=== PATIENT | female | born 1980 | race Caucasian/White ===

== ENCOUNTER 2023-02-03 05:40 | Inpatient (IN) | payer OTHER ==
[2023-02-07] MEDS ORDERED: Acetaminophen 500 MG Tab PO ONE (05:39)
[2023-02-07] MEDS ORDERED: Scopolamine 1.5 MG Transdermal Patch TOP ONE (05:39)
[2023-02-07] MEDS ORDERED: Dextrose 5%-Lactated Ringers 1,000 ML IV SCH ×2 (05:45→11:00)
[2023-02-07 06:13] LABS: HEMATOCRIT 38.7 % (34.3-46.0); HEMOGLOBIN 13.1 g/dL (11.2-15.5); MEAN CORPUSCULAR HEMOGLOBIN 29.4 pg (31.6-35.5); MEAN CORPUSCULAR HGB CONC 33.9 g/dL (31.6-35.5); MEAN CORPUSCULAR VOLUME 86.8 fL (81.4-99.0); RED BLOOD CELL COUNT 4.46 M/uL (3.77-5.24); WHITE BLOOD CELL COUNT,WBC 9.3 K/uL (3.2-11.0)
[2023-02-07 06:27] LABS: HEMOGLOBIN A1C 7.3 % (4.5-6.2)
[2023-02-07] MEDS ORDERED: Celecoxib 200 MG Cap PO ONE ×2 (06:30→07:00)
[2023-02-07 06:35] LABS: A/G RATIO 0.8 (1.2-2.2); ALANINE AMINOTRANSFERASE,ALT 46 U/L (12-78); ALBUMIN 3.3 g/dL (3.4-5.0); ALKALINE PHOSPHATASE 96 U/L (46-116); ASPARTATE AMNIOTRANSFERASE,AST 37 U/L (15-37); BILIRUBIN TOTAL 0.4 mg/dL (0.2-1.0); BLOOD UREA NITROGEN,BUN 12 mg/dL (7-18); CALCIUM 8.7 mg/dL (8.5-10.1); CARBON DIOXIDE,CO2 27 mmol/L (21-32); CHLORIDE,CL 100 mmol/L (100-108); CREATININE 0.7 mg/dL (0.6-1.0); EST CRCL DRUG DOSING (CG) 94.21 mL/min; ESTIMATED GFR 111 mL/min (>60); GLUCOSE RANDOM 204 mg/dL (74-106); MAGNESIUM 1.6 mg/dL (1.8-2.4); PHOSPHORUS 4.2 mg/dL (2.5-4.9); POTASSIUM,K 3.8 mmol/L (3.6-5.2); PROTEIN TOTAL,TP 7.7 g/dL (6.4-8.2); SODIUM,NA 136 mmol/L (140-148)
[2023-02-07] MEDS ORDERED: Meropenem 500 MG SDV ONE (06:36)
[2023-02-07] MEDS ORDERED: Bupivacaine 0.5% 50 ML MDV ONE (06:36)
[2023-02-07] MEDS ORDERED: Lidocaine 1% with EPINEPHrine 1:100,000 50 ML MDV ONE (06:36)
[2023-02-07 06:37] LABS: ANION GAP 12.8 mmol/L (5.0-14.0)
[2023-02-07] MEDS ORDERED: Dexamethasone 4 MG/ML SDV ONE (06:51)
[2023-02-07] MEDS ORDERED: Glycopyrrolate 0.2 MG/ML 5 ML MDV ONE (06:51)
[2023-02-07] MEDS ORDERED: Rocuronium 50 MG/5 ML Vial ONE (06:51)
[2023-02-07] MEDS ORDERED: Succinylcholine 200 MG/10 ML MDV ONE (06:51)
[2023-02-07] MEDS ORDERED: Neostigmine Methylsulfate 1 MG/ML 5 ML Syringe ONE (06:51)
[2023-02-07] MEDS ORDERED: Propofol 200 MG/20 ML SDV ONE (06:51)
[2023-02-07] MEDS ORDERED: Ondansetron 4 MG/2 ML SDV ONE (06:51)
[2023-02-07] MEDS ORDERED: cefOXitin 2 GM in Sodium Chloride 0.9% 100 ML IV ONE (07:00)
[2023-02-07] MEDS ORDERED: cefOXitin 2 GM Vial ONE (07:05)
[2023-02-07] MEDS ORDERED: Ketamine 16 MG in Sodium Chloride 0.9% 19.84 ML IV SCH (07:15)
[2023-02-07] MEDS ORDERED: cefOXitin 2 GM in Sodium Chloride 0.9% 50 ML IV ONE ×2 (07:15→07:30)
[2023-02-07] MEDS ORDERED: Ketamine 500 MG/5 ML MDV IV SCH (07:15)
[2023-02-07] MEDS ORDERED: fentaNYL 50 MCG/ML SDV IVPUSH ONE (09:57)
[2023-02-07] MEDS ORDERED: hydrOXYzine HCl 50 MG/ML SDV IM ONE (10:00)
[2023-02-07] MEDS ORDERED: Lactated Ringers 1,000 ML IV SCH (11:00)
[2023-02-07] MEDS ORDERED: 50% Dextrose in Water 50 ML Syringe IVPUSH PRN (11:00)
[2023-02-07] MEDS ORDERED: HYDROmorphone 1 MG/ML Syringe IV PRN (11:00)
[2023-02-07] MEDS ORDERED: Metoclopramide 10 MG/2 ML SDV IVPUSH PRN (11:00)
[2023-02-07] MEDS ORDERED: Acetaminophen 500 MG Tab PO PRN (11:00)
[2023-02-07] MEDS ORDERED: Glucagon,Human Recombinant 1 MG Vial IM PRN (11:00)
[2023-02-07] MEDS ORDERED: hydrOXYzine HCl 50 MG/ML SDV IM PRN (11:00)
[2023-02-07] MEDS ORDERED: Labetalol 20 MG/4 ML Syringe IVPUSH PRN (11:00)
[2023-02-07] MEDS ORDERED: HYDROmorphone 0.5 MG/0.5 ML Syringe IVPUSH PRN (11:00)
[2023-02-07] MEDS ORDERED: diphenhydrAMINE 50 MG/ML SDV IVPUSH PRN (11:00)
[2023-02-07] MEDS: oxyCODONE 5 MG Tab PO PRN ×2 (12:50→19:25)
[2023-02-07] MEDS: Cyclobenzaprine 10 MG Tab PO PRN ×2 (12:50→20:56)
[2023-02-07] MEDS: Ondansetron 4 MG/2 ML SDV IVPUSH PRN ×2 (12:57→17:34)
[2023-02-07] MEDS: cefOXitin 2 GM in Sodium Chloride 0.9% 50 ML IV SCH ×2 (13:02→19:25)
[2023-02-07] MEDS ORDERED: Pantoprazole 40 MG Vial IVPUSH SCH (14:00)
[2023-02-07] MEDS: Amphetamine/Dextroamphetamine Salts 10 MG Tab PO SCH (14:21)
[2023-02-07] MEDS: Acetaminophen 500 MG Tab PO SCH ×2 (14:22→21:06)
[2023-02-07] MEDS: MVI, Adult with Vitamin K 10 ML, Thiamine 200 MG, Zinc/Copper/Manganese/Selenium 1 ML i... IV SCH ×4 (17:21)
[2023-02-07] MEDS: Heparin Sodium 5,000 Units/ML Vial SUBCUT SCH (17:22)
[2023-02-07] MEDS: traMADol 50 MG Tab PO PRN (17:26)
[2023-02-07] MEDS: Insulin Lispro 100 Unit/ML 3 ML KwikPen SUBCUT SCH ×2 (17:29→21:01)
[2023-02-07] MEDS: Metoprolol Tartrate 50 MG Tab PO SCH (20:58)
[2023-02-07] MEDS ORDERED: Insulin Glargine,Human Rec. Analog 100 Units/ML 3 ML Pen SUBCUT SCH (21:00)
[2023-02-08] MEDS: traMADol 50 MG Tab PO PRN ×4 (00:38→19:57)
[2023-02-08] MEDS: cefOXitin 2 GM in Sodium Chloride 0.9% 50 ML IV SCH ×4 (01:34→19:11)
[2023-02-08] MEDS ORDERED: Iopamidol 612 MG/ML 30 ML SDV PO STA (03:15)
[2023-02-08] MEDS: Heparin Sodium 5,000 Units/ML Vial SUBCUT SCH ×2 (04:12→15:34)
[2023-02-08] MEDS: Insulin Lispro 100 Unit/ML 3 ML KwikPen SUBCUT SCH ×4 (04:14→21:20)
[2023-02-08] MEDS: Acetaminophen 500 MG Tab PO SCH ×3 (05:17→21:22)
[2023-02-08] MEDS ORDERED: Celecoxib 200 MG Cap PO ONE (06:30)
[2023-02-08] MEDS: Levothyroxine 112 MCG Tab PO SCH (07:32)
[2023-02-08] MEDS: Amphetamine/Dextroamphetamine Salts 10 MG Tab PO SCH ×2 (07:33→13:27)
[2023-02-08] MEDS ORDERED: 50% Dextrose in Water 50 ML Syringe IVPUSH PRN ×2 (07:58→08:03)
[2023-02-08] MEDS ORDERED: Glucagon,Human Recombinant 1 MG Vial IM PRN ×2 (07:58→08:03)
[2023-02-08] MEDS ORDERED: Insulin Glargine,Human Rec. Analog 100 Units/ML 3 ML Pen SUBCUT ONE ×2 (08:00→21:00)
[2023-02-08] MEDS ORDERED: Ondansetron 4 MG Tab.DIS PO PRN (08:00)
[2023-02-08] MEDS ORDERED: hydrOXYzine HCl 25 MG Tab PO PRN (08:01)
[2023-02-08] MEDS: metFORMIN 500 MG Tab PO SCH ×2 (08:43→17:17)
[2023-02-08] MEDS: Celecoxib 200 MG Cap PO SCH ×2 (08:46→20:01)
[2023-02-08] MEDS: Metoprolol Tartrate 50 MG Tab PO SCH ×2 (08:46→20:02)
[2023-02-08] MEDS: Escitalopram 10 MG Tab PO SCH (08:46)
[2023-02-08] MEDS: SCOPOLAMINE PATCH CHECK TOP SCH (08:47)
[2023-02-08] MEDS: Lactated Ringers 1,000 ML IV SCH (08:49)
[2023-02-08] MEDS: Ondansetron 4 MG/2 ML SDV IVPUSH PRN (10:01)
[2023-02-08] MEDS: Pantoprazole 40 MG Delayed-Release Granules 1 Packet PO SCH (11:21)
[2023-02-08] MEDS: Cyclobenzaprine 10 MG Tab PO PRN (14:09)
[2023-02-08] MEDS: MVI, Adult with Vitamin K 10 ML, Thiamine 200 MG, Zinc/Copper/Manganese/Selenium 1 ML i... IV SCH ×4 (15:28)
[2023-02-09] MEDS: Lactated Ringers 1,000 ML IV SCH (00:05)
[2023-02-09] MEDS: cefOXitin 2 GM in Sodium Chloride 0.9% 50 ML IV SCH ×2 (01:51→08:39)
[2023-02-09] MEDS: Cyclobenzaprine 10 MG Tab PO PRN ×2 (04:23→14:04)
[2023-02-09] MEDS: traMADol 50 MG Tab PO PRN ×2 (04:23→10:25)
[2023-02-09] MEDS: Heparin Sodium 5,000 Units/ML Vial SUBCUT SCH (04:24)
[2023-02-09] MEDS: Insulin Lispro 100 Unit/ML 3 ML KwikPen SUBCUT SCH ×2 (04:25→11:27)
[2023-02-09] MEDS: Acetaminophen 500 MG Tab PO SCH ×2 (06:01→14:04)
[2023-02-09] MEDS: Amphetamine/Dextroamphetamine Salts 10 MG Tab PO SCH ×2 (07:39→14:08)
[2023-02-09] MEDS: metFORMIN 500 MG Tab PO SCH (07:39)
[2023-02-09] MEDS: Levothyroxine 112 MCG Tab PO SCH (07:39)
[2023-02-09] MEDS: Celecoxib 200 MG Cap PO SCH (08:39)
[2023-02-09] MEDS: Escitalopram 10 MG Tab PO SCH (08:39)
[2023-02-09] MEDS: Metoprolol Tartrate 50 MG Tab PO SCH (08:40)
[2023-02-09] MEDS: SCOPOLAMINE PATCH CHECK TOP SCH (08:40)
[2023-02-09] MEDS ORDERED: Cyanocobalamin (Vitamin B12) 1,000 MCG/ML SDV IM ONE (09:00)
[2023-02-09] MEDS: Pantoprazole 40 MG Delayed-Release Granules 1 Packet PO SCH (12:26)
== END 2023-02-09 15:59 | disposition home or self-care (01) | DRG 621 ==
LOC: JP.SDSSCHI 02-07 05:43 → UNDOADMIN 02-07 05:43 → JP.SDSSCHI 02-07 10:00 → JP.MS 02-07 10:00 → UNDODISIN 02-09 15:59
PROVIDERS: ADMIT Surgery; ATTEND Surgery
PROC: 0DB84ZZ Excision of Small Intestine, Percutaneous Endoscopic Approach (ICD-10-PCS; principal; 2023-02-07)
PROC: 0D164ZA Bypass Stomach to Jejunum, Percutaneous Endoscopic Approach (ICD-10-PCS; 2023-02-07)
PROC: 0DB64ZZ Excision of Stomach, Percutaneous Endoscopic Approach (ICD-10-PCS; 2023-02-07)
PROC: 0FB24ZX Excision of Left Lobe Liver, Percutaneous Endoscopic Approach, Diagnostic (ICD-10-PCS; 2023-02-07)
DX: E66.01 Morbid (severe) obesity due to excess calories (principal); Z68.43 Body mass index [BMI] 50.0-59.9, adult; F41.1 Generalized anxiety disorder; F32.A Depression, unspecified; R16.0 Hepatomegaly, not elsewhere classified; K44.9 Diaphragmatic hernia without obstruction or gangrene; I10 Essential (primary) hypertension; L30.9 Dermatitis, unspecified; E10.9 Type 1 diabetes mellitus without complications; Z79.4 Long term (current) use of insulin; Z88.2 Allergy status to sulfonamides; Z88.8 Allergy status to other drugs, medicaments and biological substances
CPT/HCPCS: 36415; 74240; 80053; 82947; 83036; 83735; 84100; 84703; 85027; 86850; 86900; 86901; 88307; 88313; A9270-GY; C9113; J0171; J0330; J0694; J1100; J1170; J1644; J1815; J1815-GY; J2020; J2185; J2405; J2704; J2710; J2795; J3410; J3411; J3420; J3490; J7120; J7121; Q9967